=== PATIENT | female | born 1985 | race Caucasian/White ===

== ENCOUNTER 2018-07-06 23:14 | Emergency (ER) | payer OTHER ==
[2018-07-07 00:23] LABS: SQUAMOUS EPITHIAL 1 /hpf (0-5); URINE BACTERIA RARE (<OCC); URINE BILIRUBIN NEGATIVE (NEGATIVE); URINE BLOOD 1+ (NEGATIVE); URINE CLARITY Clear (Clear); URINE COLOR Yellow (YELLOW); URINE GLUCOSE (UA) NORMAL (Normal); URINE LEUKOCYTE ESTERASE NEG Leu/uL (Negative); URINE PROTEIN NEGATIVE (NEGATIVE); URINE UROBILINOGEN NORMAL mg/dL (0.2-1.0)
[2018-07-07 00:31] LABS: HCG,QUALITATIVE URINE POSITIVE (NEGATIVE)
[2018-07-07 00:38] LABS: BASO # 0.1 K/uL (0.0-0.2); BASO % 0.7 % (0.0-2.0); EOS # 0.1 K/uL (0.0-0.7); HEMOGLOBIN 12.1 g/dL (11.0-16.0); LYMPH # 2.1 K/uL (1.0-4.3); MEAN CELL VOLUME 83.9 fL (81.0-99.0); MEAN CORPUSCULAR HEMOGLOBIN 26.9 pg (27.0-31.0); MEAN CORPUSCULAR HGB CONC 32.1 g/dL (33.0-37.0); MEAN PLATELET VOLUME 8.2 fL (7.2-11.7); MONO # 0.9 K/uL (0.0-0.8); MONO % 11.6 % (0.0-10.0); NEUT # 4.7 K/uL (1.8-7.0); NEUT % 59.7 % (50.0-75.0); RBC 4.48 Mil/uL (3.80-5.20); RED CELL DISTRIBUTION WIDTH 16.3 % (11.5-14.5); WHITE BLOOD COUNT 7.9 K/uL (4.8-10.8)
[2018-07-07] MEDS ORDERED: Sodium Chloride 0.9% 1,000 ML IV ONE (00:39)
--- NOTE | 2018-07-07 00:40 | C.PDOC ---
History Of Present Illness 33 year old female presents with hypogastric pain and pressure for the past few days associated with back pain. LMP was 06/02/18. Denies fever or chills. Chief Complaint (Nursing): Abdominal Pain History Per: Patient History/Exam Limitations: no limitations Onset/Duration Of Symptoms: Days Current Symptoms Are (Timing): Still Present Location Of Pain/Discomfort: Other (Hypogastric) Radiation Of Pain To:: None Quality Of Discomfort: Unable To Describe Associated Symptoms: denies: Fever, Chills Exacerbating Factors: None Alleviating Factors: None Recent travel outside of the [place]: No Past Medical History Reviewed: Historical Data, Nursing Documentation, Vital Signs Vital Signs: Last Vital Signs Temp 98.8 F 07/06/18 23:56 Pulse 80 07/06/18 23:56 Resp 14 07/06/18 23:56 BP 130/93 H 07/06/18 23:56 Pulse Ox 99 07/06/18 23:56 Primary Care Provider: Sarah Milton - Medical History PMH: HTN, Hypercholesterolemia Family History: States: Unknown Family Hx - Social History Hx Alcohol Use: Yes Hx Substance Use: No - Immunization History Hx Tetanus Toxoid Vaccination: No Hx Influenza Vaccination: No Hx Pneumococcal Vaccination: No Review Of Systems Constitutional: Negative for: Fever, Chills Cardiovascular: Negative for: Chest Pain, Palpitations Respiratory: Negative for: Cough, Shortness of Breath Gastrointestinal: Positive for: Abdominal Pain Musculoskeletal: Positive for: Back Pain Neurological: Negative for: Weakness, Numbness Physical Exam - Physical Exam Appears: Non-toxic Skin: Normal Color, Warm Head: Atraumatic, Normacephalic Oral Mucosa: Moist Chest: Symmetrical, No Tenderness Cardiovascular: Rhythm Regular Respiratory: Normal Breath Sounds, No Rales, No Rhonchi, No Wheezing Gastrointestinal/Abdominal: Soft, Tenderness (Hypogastric and bilateral lower quadrant), No Guarding, No Rebound Neurological/Psych: Oriented x3, Normal Speech ED Course And Treatment - Laboratory Results Result Diagrams: 07/07/18 00:32 07/07/18 00:32 Lab Results: Urine Color Yellow (YELLOW) 07/07/18 00:14 Urine Clarity Clear (Clear) 07/07/18 00:14 Urine pH 5.0 (5.0-8.0) 07/07/18 00:14 Ur Specific [place] 1.025 (1.003-1.030) 07/07/18 00:14 Urine Protein Negative mg/dL (NEGATIVE) 07/07/18 00:14 Urine Glucose (UA) Normal mg/dL (Normal) 07/07/18 00:14 Urine Ketones Negative mg/dL (NEGATIVE) 07/07/18 00:14 Urine Blood 1+ (NEGATIVE) H 07/07/18 00:14 Urine Nitrate Negative (NEGATIVE) 07/07/18 00:14 Urine Bilirubin Negative (NEGATIVE) 07/07/18 00:14 Urine Urobilinogen Normal mg/dL (0.2-1.0) 07/07/18 00:14 Ur Leukocyte Esterase Neg Gayathri/uL (Negative) 07/07/18 00:14 Urine WBC (Auto) 1 /hpf (0-5) 07/07/18 00:14 Urine RBC (Auto) 5 /hpf (0-3) H 07/07/18 00:14 Ur Squamous Epith Cells 1 /hpf (0-5) 07/07/18 00:14 Urine Bacteria Rare (<OCC) 07/07/18 00:14 Urine HCG, Qual Positive (NEGATIVE) 07/07/18 00:14 Urine HCG, Qual Positive (NEGATIVE) 07/07/18 00:14 O2 Sat by Pulse Oximetry: 99 (Room air) Pulse Ox Interpretation: Normal Progress Note: Blood work, UA, and US ordered. IV fluids administered. Disposition Counseled Patient/Family Regarding: Diagnosis - Disposition Referrals: [facility] [Outside] Disposition: HOME/ ROUTINE Disposition Time: 04:47 Condition: STABLE Prescriptions: Nitrofurantoin Macrocrystals [Macrobid] 1 cap PO BID #14 cap Instructions: Urinary Tract Infection, Adult (DC), Stomach Pain in Early , Symptoms Forms: [facility] ([place]ish) - POA Present On Arrival: None - Clinical Impression Clinical Impression: UTI (urinary tract infection) during , at early stage - Scribe Statement The provider has reviewed the documentation as recorded by the Scribe Anthony Hudson All medical record entries made by the Scribe were at my direction and personally dictated by me. I have reviewed the chart and agree that the record accurately reflects my personal performance of the history, physical exam, medical decision making, and the department course for this patient. I have also personally directed, reviewed, and agree with the discharge instructions and disposition.
[2018-07-07 00:50] LABS: ALB/GLOB RATIO 1.8 (1.0-2.1); ALBUMIN 4.7 g/dL (3.5-5.0); ALT/SGPT 15 U/L (9-52); AST/SGOT 23 U/L (14-36); BLOOD UREA NITROGEN 12 mg/dL (7-17); CALCIUM 9.4 mg/dl (8.6-10.4); GFR NON-AFRICAN AMERICAN > 60
[2018-07-07 03:49] VITALS: RESP 18
[2018-07-07 05:08] VITALS: BP 131/89; PULSE 81; TEMP 98.2; O2SAT 98
--- NOTE | 2018-07-07 08:51 | US ---
Date of service: 07/07/2018 HISTORY: Pelvic pain COMPARISON: None available. TECHNIQUE: Transabdominal and transvaginal FINDINGS: UTERUS: Measures 9.2 x 5.6 x 5.6 cm. Normal in size and appearance. No fibroid or other mass lesion seen. ENDOMETRIUM: Measures 24 mm in diameter. No endometrial fluid. No intrauterine gestational sac. CERVIX: No cervical abnormality identified. RIGHT OVARY: Measures 3.3 x 2.1 x 3.6 cm. No solid mass. Normal flow. LEFT OVARY: Measures 3.3 x 2.2 x 3.0 cm. No solid mass. Normal flow. FREE FLUID: No significant free fluid noted. OTHER FINDINGS: None. IMPRESSION: Thickened endometrium. Otherwise unremarkable. The preliminary findings for this examination were reported by [facility] at 2:30 a.m. on 07/07/2018. There is concurrence of this report with the preliminary findings.
== END 2018-07-07 05:08 | disposition home or self-care (01) ==
LOC: C.ER 23:14
DX: O23.41 Unspecified infection of urinary tract in pregnancy, first trimester (principal); Z3A.00 Weeks of gestation of pregnancy not specified
CPT/HCPCS: 76830; 76856; 80053; 81001; 84702; 84703; 85025; 86850; 86900; 87086; 99285; J7030